=== PATIENT | female | born 1970 | race Caucasian/White ===

== ENCOUNTER 2020-11-08 13:59 | Outpatient (REF) | payer OTHER, SELFPAY | END 2020-11-08 14:00 | disposition home or self-care (01) | LOC: HO.LNP 13:59 | PROVIDERS: Visit Provider Hospitalist | DX: Z20.822 Contact with and (suspected) exposure to COVID-19 (principal); J01.90 Acute sinusitis, unspecified | CPT/HCPCS: U0003; U0005 ==

== ENCOUNTER 2020-12-04 | Outpatient (REF) | payer OTHER, SELFPAY | END 2020-12-04 00:01 | disposition home or self-care (01) | LOC: HO.LNP | PROVIDERS: Visit Provider Internal Medicine | DX: J06.9 Acute upper respiratory infection, unspecified (principal); J01.90 Acute sinusitis, unspecified; Z20.822 Contact with and (suspected) exposure to COVID-19 | CPT/HCPCS: U0003; U0005 ==

== ENCOUNTER 2020-12-05 11:32 | Outpatient (REF) | payer OTHER, SELFPAY | END 2020-12-05 11:33 | disposition home or self-care (01) | LOC: HO.LNP 11:32 | PROVIDERS: Visit Provider Internal Medicine | DX: Z13.89 Encounter for screening for other disorder (principal) ==